=== PATIENT | female | born 2000 | race Hispanic/Latino ===

== ENCOUNTER 2025-07-16 00:02 | Inpatient (IN) | payer OTHER ==
[~2025-07-16] VITALS: Ht 170.2 cm; Wt 104.3 kg
[2025-07-16] MEDS ORDERED: LACTATED RINGER'S 1,000 ML IV PRN (00:15)
[2025-07-16] MEDS ORDERED: TERBUTALINE SULFATE 1 MG/ML AMP SUB-Q PRN (00:15)
[2025-07-16] MEDS ORDERED: LIDOCAINE HCL 1% 30 ML SDV INJ PRN (00:15)
[2025-07-16] MEDS ORDERED: MAGNESIUM HYDROXIDE/AL HYDROX 30 ML CUP PO PRN (00:15)
[2025-07-16] MEDS ORDERED: OXYTOCIN/0.9 % SODIUM CHLORIDE 30 UNITS/500 ML BAG IV SCH ×2 (00:15→03:45)
[2025-07-16] MEDS ORDERED: CALCIUM CARBONATE 500 MG CHEW PO PRN (00:15)
[2025-07-16 00:37] LABS: MCH 27.2 PG (25.6-32.2); MCHC 32.5 g/dL (32.2-35.5); MCV 83.5 fL (79.4-94.8); RBC 4.86 M/uL (3.93-5.22)
[2025-07-16 00:53] LABS: AMPHETAMINES, URINE NEGATIVE (NEGATIVE); BARBITURATES, URINE NEGATIVE (NEGATIVE); BENZODIAZEPINE, URINE NEGATIVE (NEGATIVE); CANNABINOID, URINE NEGATIVE (NEGATIVE); COCAINE, URINE NEGATIVE (NEGATIVE); ECSTASY, URINE NEGATIVE (NEGATIVE); FENTANYL, URINE NEGATIVE (NEGATIVE); METHADONE, URINE NEGATIVE (NEGATIVE); OPIATES, URINE NEGATIVE (NEGATIVE); OXYCODONE, URINE NEGATIVE (NEGATIVE); PHENCYCLIDINE, URINE NEGATIVE (NEGATIVE)
[2025-07-16 01:08] VITALS: BP 142/82
[2025-07-16 01:11] LABS: ABO O; ANTIBODY SCREEN NEGATIVE; RH POSITIVE
[2025-07-16] MEDS ORDERED: SODIUM CHLORIDE 0.9% 1,000 ML XX SCH (02:15)
--- NOTE | 2025-07-16 09:06 | PR ---
[facility] [address] [facility] [place], [place] [address] Signed Progress Notes IP Datetime Report Generated by CPN: 07/16/2025 09:06 Impression: Normal Progression of Labor Procedures: Sterile Vag Exam Plan: Continue Present Management Dilatation: 6.0 Effacement: 80 Effacement: 80 Station: -2 Station: -2 Comments: Strip has remained reassuring. Patient is making good progress. Will continue current management. Variability: Moderate 6-25bpm Decelerations: None FHR Category: Category I Signing Physician: Fifi Niño MD Copies: ~ *Electronically Signed* 07/16/25905 FIFI NIÑO MD PATIENT NAME: DALLIN CRUZ PROGRESS NOTE DATE OF : [birth year] PHYSICIAN: FIFI NIÑO MD RPT #: [id number] REPORT IS CONFIDENTIAL AND NOT TO BE RELEASED WITHOUT AUTHORIZATION
[2025-07-16] MEDS ORDERED: SEVOFLURANE 250 ML BTL INH ONE (10:06)
[2025-07-16] MEDS ORDERED: fentaNYL citrate 100 MCG/2 ML VIAL ONE ×2 (10:56→11:07)
[2025-07-16] MEDS ORDERED: TRANEXAMIC ACID 1,000 MG/10 ML AMP ONE (10:59)
[2025-07-16] MEDS ORDERED: ACETAMINOPHEN 1,000 MG/100 ML VIAL ONE (11:02)
[2025-07-16] MEDS ORDERED: SUCCINYLCHOLINE IN 0.9% NACL 200 MG/10 ML SYRINGE ONE (11:21)
[2025-07-16] MEDS ORDERED: Ropivacaine HCl 0.5% 30 ML VIAL ONE (11:21)
[2025-07-16] MEDS ORDERED: KETOROLAC TROMETHAMINE 30 MG/ML VIAL ONE ×2 (11:31→11:33)
[2025-07-16] MEDS ORDERED: PROMETHAZINE HCL 25 MG TAB PO PRN (11:45)
[2025-07-16] MEDS ORDERED: OXYCODONE HCL 5 MG TAB PO PRN (11:45)
[2025-07-16] MEDS ORDERED: PROMETHAZINE HCL 25 MG SUPP PR PRN (11:45)
[2025-07-16] MEDS ORDERED: PROCHLORPERAZINE EDISYLATE 10 MG/2 ML VIAL IV PRN (11:45)
[2025-07-16] MEDS ORDERED: LIDOCAINE 2% VISCOUS 6 ML SYR TOP ONE (11:45)
[2025-07-16] MEDS ORDERED: OXYCODONE/APAP 5/325 TAB PO PRN (11:45)
[2025-07-16] MEDS ORDERED: HYDROCODONE/ACETA 5/325 TAB PO PRN (11:45)
[2025-07-16] MEDS ORDERED: METOCLOPRAMIDE HCL 10 MG/2 ML SDV IV PRN (11:45)
[2025-07-16] MEDS ORDERED: SENNOSIDES/DOCUSATE 1 EA TAB PO SCH (11:45)
[2025-07-16] MEDS ORDERED: OXYTOCIN/0.9 % SODIUM CHLORIDE 500 ML IV SCH (11:45)
[2025-07-16] MEDS ORDERED: LACTATED RINGER'S 1,000 ML IV SCH (11:49)
--- NOTE | 2025-07-16 11:56 | NUR ---
RESPONDED TO CODE 4 ACTIVATION. PT NOT AVAILABLE, TALKED WITH FAMILY IN ROOM. ALL EXPRESSED SITUATIONALLY CONSISTENT EMOTIONS, BUT COPING WELL. STATED NO IMMEDIATE NEEDS. SANITATION TANK WASHER PROVIDED SUPPORTIVE PRESENCE, PRAYER.
--- NOTE | 2025-07-16 12:05 | NUR ---
07/16/25 1205 Flakita Morfin 1156-PATIENT ARRIVED TO PACU ON 6L MASK NONAROUSABLE ORAL AIRWAY IN PLACE RR EVEN. SR HR 70'S. LR WITH 20 PITCOIN INFUSING TO RIGHT HAND. 1157-PATIENT BECOMING REACTIVE ORAL AIRWAY REMOVED BY WILL SLITTER CREASER SLOTTER HELPER. 6L MASK RR EVEN 100% FUNDUS CHECKED FIRM MIDLINE LIGHT RUBRA DRAINAGE ON YURI PAD. PATIENT MOANED EYES CLOSED. PATIENT STOPS MOANING WHEN NO LONGER ASSESSING FUNDUS. BALLESTEROS CATHETER DRAINING YELLOW URINE. 1204-PATIENT RESTING WITH EYES CLOSED REACTIVE TO VERBAL STIMULI OCCASIONAL MOANS. 6L MASK 100% RR EVEN
[2025-07-16] MEDS ORDERED: fentaNYL citrate 50 MCG/ML SDV IV PRN (12:15)
[2025-07-16] MEDS ORDERED: HYDROmorphone HCL 1 MG/ML SYR IV PRN (12:15)
[2025-07-16] MEDS ORDERED: IBLOOD GLUCOSE TEST STRIP 1 EA TEST VI PRN (12:15)
[2025-07-16] MEDS ORDERED: NALOXONE HCL 0.4 MG SYR IV PRN (12:15)
[2025-07-16 12:32] VITALS: BP 127/78
[2025-07-16] MEDS ORDERED: SIMETHICONE 80 MG CHEW PO SCH (16:00)
[2025-07-16] MEDS ORDERED: KETOROLAC TROMETHAMINE 30 MG/ML VIAL IV SCH (18:00)
[2025-07-17 05:22] LABS: MCH 27.3 PG (25.6-32.2); MCHC 32.6 g/dL (32.2-35.5); MCV 83.9 fL (79.4-94.8); RBC 3.84 M/uL (3.93-5.22)
--- NOTE | 2025-07-17 09:13 | PR ---
[facility] [address] [facility] [place], [place] [address] Signed PP Progress Notes Datetime Report Generated by CPN: 07/17/2025 09:12 SUBJECTIVE: [id number] Pain: Within Normal Limits Nausea/Vomiting: Denies Flatus: Yes Vital Signs: [id number] Vital Signs: Reviewed; Within Normal Limits EXAM: Ongoing Cardiovascular: Normal Respiratory: Normal Abdomen/Uterus: Normal Lochia: Normal Vulva/Perineum: Normal Breasts: Normal CVA Tenderness: Not Done Extremities: Normal Incision: Normal Progress: Normal IMPRESSION/PLAN/PROCEDURES: [id number] Impression: Normal Progression Plan: Continue Present Management Progress Notes: No concerns. Recovering well. Ambulating. Nursing. Anticipate D/C tomorrow. Signing Physician: Fifi Niño MD Copies: ~ *Electronically Signed* 07/17/25911 FIFI NIÑO MD PATIENT NAME: DALLIN CRUZ PROGRESS NOTE DATE OF : 98 PHYSICIAN: FIFI NIÑO MD RPT #: [id number] REPORT IS CONFIDENTIAL AND NOT TO BE RELEASED WITHOUT AUTHORIZATION
[2025-07-17] MEDS ORDERED: IBUPROFEN 600 MG TAB PO SCH (12:00)
[2025-07-17] MEDS ORDERED: ACETAMINOPHEN 325 MG TAB PO PRN (21:30)
--- NOTE | 2025-07-18 09:09 | PR ---
[facility] [address] [facility] [place], [place] [address] Signed PP Progress Notes Datetime Report Generated by CPN: 07/18/2025 09:09 Pain: Within Normal Limits Nausea/Vomiting: Denies Flatus: Yes Vital Signs: Reviewed; Within Normal Limits EXAM: Ongoing EXAM: Ongoing Cardiovascular: Normal Respiratory: Normal Abdomen/Uterus: Normal Lochia: Normal Vulva/Perineum: Normal Breasts: Not Done CVA Tenderness: Not Done Extremities: Normal Incision: Normal Progress: Normal Impression: Normal Progression Plan: Continue Present Management; Discharge Procedures: None Progress Notes: Baby shipped last night for low heart rate. Will D/C patient today. PAin controlled without narcotics. Normal lochia. Signing Physician: Fifi Niño MD Copies: ~ *Electronically Signed* 07/18/25 0909 FIFI NIÑO MD PATIENT NAME: DALLIN CRUZ PROGRESS NOTE DATE OF : 98 PHYSICIAN: FIFI NIÑO MD RPT #: [id number] REPORT IS CONFIDENTIAL AND NOT TO BE RELEASED WITHOUT AUTHORIZATION
--- NOTE | 2025-07-18 16:05 | PATH ---
[facility] [address] [place], [place] [address] Signed SPECIMEN(S): A PLACENTA SPECIMEN SOURCE: A. PLACENTA CLINICAL HISTORY: Mother's age: 27. OB history: G three P one A two (spontaneous/elective). Gestational age: 41+. Infant's weight: _. score: 8. Length of umbilical cord at delivery: _. Rh _ (Rhogam yes/no). Antibody screen: _. Maternal serologies: Rubella _, RPR _, hepatitis screen _, GBS -. Specific issues of concern: distress. ROM more than 24 hours. FINAL PATHOLOGIC DIAGNOSIS: Placenta: - Mature 560-gram placenta with three vessel umbilical cord. - Acute and chronic chorioamnionitis. - Negative for significant funisitis. 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 - Villous and perivillous fibrin deposition and calcification. JVR:[facility] MICROSCOPIC EXAMINATION: Histologic sections of all submitted blocks are examined by light microscopy. These findings, together with the gross examination, support the pathologic diagnosis. GROSS DESCRIPTION: The specimen, labeled and designated "dylan Cruz," is received in formalin and consists of nichols discoid placenta with the following parameters: Umbilical cord: Insertion eccentric, measurement 16.5 x 1.5 cm; trivascular. Cord coiling index (per 10 cm): Six. Lesions: Umbilical cord shows yellow-green discoloration. Membranes: Insertion site: Marginal, philip, slimy, opaque with slightly yellow-green discoloration. Intact. Other: Not grossly identified. Chorionic Plate: Normal radiating vascular pattern, yellow-green and shiny. Lesions: Not grossly identified. Other: Not grossly identified. Maternal Surface: Normal cotyledons, intact. Lesions: Not grossly identified. Measurement: 25.5 x 16 x 2.0 cm. 560 g Cut Surface: Maroon and spongy. Lesions: Not grossly identified. Basal plate PATIENT NAME: DALLIN CRUZ PATHOLOGY DATE OF : [birth year] REPORT #: [id number] PHYSICIAN: SHILPA WARD PCP: ZOILA ROTH NP REPORT IS CONFIDENTIAL AND NOT TO BE RELEASED WITHOUT AUTHORIZATION [facility] [address] [place], [place] [address] Signed fibrin 0.1 cm in thickness. Other Findings: Area of yellow-philip, homogenous tissue that measure 1.2 cm in diameter. Cassette Summary: (A1) membranes and umbilical cord (A2) yellow-philip homogenous tissue, guest relations representative section (A3) placenta parenchyma (A4) placenta parenchyma JS (under the direct supervision of a pathologist) The Gross Description was prepared using a voice recognition system. The report was reviewed for accuracy; however, sound-alike word errors, addition and/or deletions may occur. If there is any question about this report, please contact Client Services. PERFORMING LABORATORY: Technical component was performed by [facility], [address] [place] [id number] (CLIA# [id number]). Professional interpretation was performed by [facility], [address] [place] [id number] (CLIA#: [id number]). Diagnostician: Primitivo Daniels MD Pathologist Electronically Signed 07/18/2025 Copies: ~ PATIENT NAME: CRUZDALLIN PATHOLOGY DATE OF : 98 REPORT #: [id number] PHYSICIAN: SHILPA PATHOLOGY PCP: ZOILA ROTH NP REPORT IS CONFIDENTIAL AND NOT TO BE RELEASED WITHOUT AUTHORIZATION
== END 2025-07-18 18:22 | disposition home or self-care (01) | DRG 788 ==
LOC: FBC 00:02
PROVIDERS: ADMIT Obstetrics & Gynecology; ATTEND Obstetrics & Gynecology
PROC: 4A1HXCZ Monitoring of Products of Conception, Cardiac Rate, External Approach (ICD-10-PCS; 2025-07-16)
PROC: 10D00Z1 Extraction of Products of Conception, Low, Open Approach (ICD-10-PCS; principal; 2025-07-16 10:30)
DX: O48.0 Post-term pregnancy (principal); Z3A.41 41 weeks gestation of pregnancy; Z37.0 Single live birth; O77.0 Labor and delivery complicated by meconium in amniotic fluid; O69.81X0 Labor and delivery complicated by cord around neck, without compression, not applicable or unspecified; O76 Abnormality in fetal heart rate and rhythm complicating labor and delivery; Z90.721 Acquired absence of ovaries, unilateral; Z98.890 Other specified postprocedural states; Z79.82 Long term (current) use of aspirin; Z79.899 Other long term (current) drug therapy
CPT/HCPCS: 01961; 36415; 74018; 76942; 80307; 82803; 85027; 86850; 86900; 86901; 88307; 94799; A9270; J0131; J0330; J1885; J2704; J2795; J3010; J7121